=== PATIENT | female | born 1995 | race Two or more races ===

== ENCOUNTER 2018-11-12 07:59 | Emergency (ER) | payer OTHER ==
[~2018-11-12] VITALS: Ht 175.3 cm; Wt 81.6 kg
[2018-11-12] MEDS ORDERED: NKM (08:09)
--- NOTE | 2018-11-12 08:10 | NUR ---
ED Nurse Note: Patient walked into ED from home c/o sore throat that has been an on going issue for the past 7 days, patient reports no fevers or chills, states that she just had a new onset of a non productive cough within the last day, complains of 7/10 pain, Dr. Chavez notified and aware of pain, patient placed in a room. patient is alert and oriented x4, ambulatory with a steady gait. Will wait for further orders
[2018-11-12 08:15] VITALS: BP 126/82
--- NOTE | 2018-11-12 09:09 | Emergency Room Report ---
History of Present Illness General Chief Complaint: Sore Throat Source: Patient Present Illness HPI Disclaimer: Please note that this report is being documented using DRAGON technology. This can lead to erroneous entry secondary to incorrect interpretation by the dictating instrument. HPI: 23-year-old otherwise healthy female presents for evaluation of sore throat. Symptoms have been present approximately 5 to 7 days. She notes worsening throat pain over the past few days though still able to eat and drink. Denies any throat swelling, wheezing, changes in voice, fevers or sick contacts. She has been using Motrin with moderate effect at home. Over the past 2 days she developed a slight nonproductive cough but no significant shortness of breath, no vomiting, no abdominal pain. PMH: Denies PSH: Denies Allergies: Denies Social Hx: Denies smoking or alcohol Allergies: Coded Allergies: No Known Allergies (Unverified , 11/12/18) Patient History Last Menstrual Period: 10/29/2018 Nursing Documentation-PMH Past Medical History: No Stated History Review of Systems All Other Systems: negative except mentioned in HPI Physical Exam Vital Signs Date Time Temp Pulse Resp B/P (MAP) Pulse Ox O2 Delivery O2 Flow Rate FiO2 11/12/18 08:07 98.4 79 16 126/82 (97) 96 Room Air General: Awake and alert, no acute distress HEENT: NC/AT. EOMI. uvula is midline, tonsils are 1+, nonerythematous, nonedematous, no exudate. Pharynx is slightly erythematous but no edema, no exudate. Neck: Supple, trachea midline, no anterior or posterior lymphadenopathy, no masses Cardiovascular: RRR. S1 and S2 normal. No murmur appreciated Resp: Normal work of breathing. No cough, wheezing or crackles appreciated MSK: Normal tone and bulk. Moving all extremities. No obvious deformity. Neuro: Awake and alert. Mentating appropriately. Medical Decision Making Diagnostic Impression: Primary Impression: Pharyngitis Qualified Codes: J02.9 - Acute pharyngitis, unspecified ER Course 23 female presents for evaluation of sore throat persisting for proximally 1 week. Differential includes was not limited to laryngitis, tonsillitis, pharyngitis, viral syndrome. In the setting of a nonproductive cough with clear breath sounds and overall nontoxic-appearing female with no cervical lymphadenopathy, no exudate and no pharyngeal edema is likely a viral syndrome that should improve over the next few days. Centor score is 0, no indication for culture or antibiotics. The patient be given a dose of dexamethasone and Motrin in the emergency department and discharged on NSAIDs. Discussed need for follow-up with her PMD and to return if any red flag symptoms appear. She understands and agrees with this treatment plan will be discharged home. Last Vital Signs Date Time Temp Pulse Resp B/P (MAP) Pulse Ox O2 Delivery O2 Flow Rate FiO2 11/12/18 08:15 98.4 84 16 126/82 96 Room Air Disposition: HOME, SELF-CARE Condition: Stable Referrals: [facility] Patient Instructions: Sore Throat Additional Instructions: You are treated with a dose of steroids in the emergency department for pain and inflammation. Continue to alternate between 650 mg of Tylenol and 600 mg of ibuprofen every 4 hours for control of pain and inflammation. If you notice any throat swelling, difficulty breathing, worsening pain, fevers, productive cough or any other sudden changes in your health return to the emergency department for reevaluation. Otherwise, follow-up with your primary doctor in the next week to discuss this emergency department visit and for reevaluation. Harsh Chavez MD Nov 12, 2018 09:09
--- NOTE | 2018-11-12 09:36 | NUR ---
ER DISCHARGE NOTE: Patient is cleared to be discharged per ERMD, pt is aox4, on room air, with stable vital signs. pt was given dc instructions, pt was able to verbalize understanding, pt id band removed without complications. pt is able to ambulate with steady gait. pt took all belongings.
[2018-11-12 09:37] VITALS: BP 120/80
== END 2018-11-12 09:35 | disposition home or self-care (01) ==
LOC: EMR 08:59
DX: J02.9 Acute pharyngitis, unspecified (principal)
CPT/HCPCS: J8540; Z7502; 99282